=== PATIENT | female | born 1980 | race American Indian/Alaskan Native ===

== ENCOUNTER 2017-09-03 08:17 | Outpatient (CLI) | payer MEDICAID ==
[2017-09-03] MEDS ORDERED: LACTATED RINGERS 1,000 ML IV ONE (08:29)
[2017-09-03 08:41] VITALS: BP 129/75
[2017-09-03 08:47] LABS: Bacteria,Urine 1+ /HPF (Negative); Bilirubin,Urine NEG (Negative); Blood,Urine NEG (Negative); Color,Urine Yellow (Yellow); Mucus,Urine FEW /HPF; Protein,Urine <15 mg/dL mg/dL (Negative); Urobilinogen,Urine < 2.0 mg/dL (<2.0)
== END 2017-09-03 10:04 | disposition home or self-care (01) ==
LOC: TRG 08:17
PROVIDERS: ATTEND Obstetrics & Gynecology
DX: O09.523 Supervision of elderly multigravida, third trimester (principal); O47.03 False labor before 37 completed weeks of gestation, third trimester; Z3A.36 36 weeks gestation of pregnancy
CPT/HCPCS: 59025; 81001; 96360; J7120

== ENCOUNTER 2017-09-15 12:15 | Outpatient (CLI) | payer MEDICAID ==
[2017-09-15 14:00] VITALS: BP 121/65
--- NOTE | 2017-09-15 14:02 | Ultrasound Report ---
LIMITED OB ULTRASOUND: NRNST in office Gestation: L[place] Position: Cephalic MARCELA = 17 cm Heart Rate: 148 BPM Estimated age 38 weeks 1 day.
--- NOTE | 2017-09-15 14:19 | Ultrasound Report ---
BIOPHYSICAL PROFILE: NRNST in office 2 - breathing movements 2 - movements 2 - posture and tone 2 - Qualitative amniotic fluid volume 8 - TOTAL SCORE OF POSSIBLE 8 Heart Rate (bpm) 148
== END 2017-09-15 14:35 | disposition home or self-care (01) ==
LOC: TRG 12:15
PROVIDERS: ATTEND Obstetrics & Gynecology
DX: O47.1 False labor at or after 37 completed weeks of gestation (principal); Z3A.38 38 weeks gestation of pregnancy
CPT/HCPCS: 59025; 76815; 76819

== ENCOUNTER 2017-09-17 09:52 | Inpatient (IN) | payer MEDICAID ==
[2017-09-17] MEDS ORDERED: ZOFRAN IV PRN (12:13)
[2017-09-17] MEDS ORDERED: XYLOCAINE 2% INFILTRATI ONE (12:13)
[2017-09-17] MEDS ORDERED: BRETHINE SUB-Q PRN (12:13)
[2017-09-17] MEDS ORDERED: MINERAL OIL PO PRN (12:13)
[2017-09-17] MEDS ORDERED: ePHEDrine SULFATE IV PRN ×2 (12:13→14:36)
[2017-09-17] MEDS ORDERED: SUBLIMAZE IV PRN (12:13)
--- NOTE | 2017-09-17 12:21 | History and Physical Report ---
History of Present Illness Date of examination: 09/17/17 (active labor @ 38 weeks) History of present illness: EDC Confirmation: 09/28/2017 Gestational Age: 28 4/7 weeks Past History : 5 Term Births: 1 Living Children: 1 Para: 1 Aborta: 3 Elect. Ab: 1 Spont. Ab: 1 Ectopics: 1 # 1 Delivery date: 1995 Weeks Gestation: 14 Delivery type: EAB Comments: denies # 2 Delivery date: 2003 Weeks Gestation: term Delivery type: Anesthesia type: epidural Delivery location: [facility] Sex: Male weight: 6-6 Comments: GBS+ # 3 Delivery date: 2015 Weeks Gestation: 10 Delivery type: SAB Comments: had D&C # 4 Delivery date: 2016 Weeks Gestation: 7-8 Delivery type: ectopic Comments: methotrexate Risk Factors: Smoked Tobacco Use: Never smoker Smokeless Tobacco Use: Never Passive smoke exposure: no Drug use: no HIV high-risk behavior: low risk Caffeine use: <1 drinks per day Alcohol use: no 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: 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 % Family History Risk Factors: Family History of DC in females < 65 years old: yes Dietary Counseling: pn yes PAP Smear History: Date of Last PAP Smear: 05/01/2017 Results: normal Past Medical History: Hyperlipidemia Past Surgical History: ABDELRAHMAN HIDALGO - had a D&C Eye surgery 2013 Family History Summary: Sister (full) - Has Family History of Thyroid Disease - Entered On: 07/10/2017 Father (biol.) - Has Family History of Hypertension - Entered On: 07/10/2017 Father (biol.) - Has Family History of Hyperlipidemia - Entered On: 07/10/2017 Mother (biol.) - Has Family History Coronary Heart Disease female < 65 - Entered On: 07/10/2017 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 Infection History Hx of STD: none HIV Risk Eval: low risk Hepatitis B Risk Eval: low risk Personal hx. of genital herpes: yes Partner hx. of genital herpes: no Varicella/Chicken Pox Status: Previous Disease TB Risk: no Genetic History ADVANCED MATERNAL AGE Congenital Heart Defect: Mom: no Dad: no Malika Disease: Mom: no Dad: no Thalassemia Mom: no Dad: no Neural Tube Defect Mom: no Dad: no Down's Syndrome Mom: no Dad: no Kimani-Sachs Mom: no Dad: no Sickle Cell Disease/Trait Mom: no Dad: no Hemophilia Mom: no Dad: no Muscular Dystrophy Mom: no Dad: no Cystic Fibrosis Mom: no Dad: no Teresita Chorea Mom: no Dad: no Mental Retardation Mom: no Dad: no Fragile X Mom: no Dad: no Other Genetic/Chromosomal Disorder Mom: no Dad: no Child w/other defect Mom: no Dad: no Enviromental Exposures Xray Exposure: no Medication, drug, or alcohol use since LMP: no Chemical/Other Exposure: no Exposure to Cat Liter: no Hx of Parvovirus (Fifth Disease): no Occupational Exposure to Children: none Current Allergies (reviewed today): AMOXICILLIN (Critical) PCN (Critical) Laboratory Results Date/Time Collected: 07/10/2017 Routine Urinalysis Leukocytes: negative Nitrite: negative Urobilinogen: negative Protein: Negative Blood: negative Ketone: negative Bilirubin: negative Glucose: Negative Urine HCG: positive Review of Systems General Denies fever, chills, sweats, anorexia, fatigue, weakness, malaise, weight loss and sleep disorder. Denies nausea, vomiting, headache, swelling of legs, abdominal pain, vaginal discharge, vaginal bleeding and contractions. Denies vaginal discharge, incontinence, dysuria, hematuria, urinary frequency, amenorrhea, menorrhagia, abnormal vaginal bleeding, pelvic pain, genital sores, decreased libido, painful periods, painful sex, urinary urgency, hot flashes, vaginal dryness, vaginal itching and vaginal odor. CV Denies chest pains, palpitations, syncope, dyspnea on exertion, orthopnea, PND and peripheral edema. Resp Denies cough, dyspnea at rest, excessive sputum, hemoptysis, wheezing and pleurisy. GI Denies nausea, vomiting, diarrhea, constipation, change in bowel habits, abdominal pain, melena, hematochezia, jaundice, gas/bloating, indigestion/ heartburn, dysphagia and odynophagia. Endo Denies cold intolerance, heat intolerance, polydipsia, polyphagia, polyuria and unusual weight change. Breast Denies left breast lump, right breast lump, nipple discharge, bloody discharge from nipple, breast pain, abnormal mammogram and breast enlargement. MS Denies back pain, joint pain, joint swelling, muscle cramps, muscle weakness, stiffness, arthritis, sciatica, restless legs, leg pain at night and leg pain with exertion. Derm Denies rash, itching, dryness and suspicious lesions. Neuro Denies paralysis, paresthesias, headache, seizures, tremors, vertigo, transient blindness, frequent falls, frequent headaches and difficulty walking. Psych Denies depression, anxiety, irritability and mood swings. Eyes Denies blurring, diplopia, irritation, discharge, vision loss, eye pain and photophobia. ENT Denies earache, ear discharge, tinnitus, decreased hearing, nasal congestion, nosebleeds, sore throat and hoarseness. Allergy Denies urticaria, allergic rash, hay fever and recurrent infections. Heme Denies abnormal bruising, bleeding and enlarged lymph nodes. PHYSICAL EXAM HEENT: PERRLA, normal conjunctiva, external nose and nasal mucosa normal, oropharynx clear Neck/Thyroid: supple, thyroid normal Skin no significant abnormal lesions or rashes Chest: respiratory effort normal, clear to auscultation Breasts: normal without skin changes or masses CV: regular, normal S1-S2, no murmur, no rub, no gallop Abdomen: normal bowel sounds, soft, nontender, no HSM Musculoskeletal: grossly normal ROM in joints, no joint tenderness or muscle weakness Neuro: grossly normal DTRs, sensation, strength, cranial nerves Extremities: no clubbing, cyanosis, or edema [employer] Exams Vulva/Vagina: No lesions, normal BUS, normal rugae Cervix: No lesions; no cervical motion tenderness Uterus: normal size and position, midline, mobile Fundal Ht: 29 Adnexae: no masses or tenderness Rectovaginal: no masses or tenderness Flowsheet View for Follow-up Visit Estimated weeks of gestation: 28 4/7 Weight: 194 Blood pressure: 130 / 62 Urine protein: Negative Urine glucose: Negative Urine nitrite: negative Fundal height: 29 Current OB Labs Blood Type: A (04/24/2017) Rh Type: positive (04/24/2017) Rh Antibody Screen: negative (04/24/2017) Hgb: 12.1 (04/24/2017) Hct: 37.6 (04/24/2017) Platelets: 243 (04/24/2017) Rubella: immune (04/24/2017) RPR: nonreactive (04/24/2017) Hep B Surface Antigen: negative (04/24/2017) HIV: negative (04/24/2017) Pap Smear: normal (05/01/2017) Quad Screen AFP Interpretation: negative ONTD (05/04/2017) 1 Hour GTT: 100 (05/01/2017) Optional Labs Varicella Ab: positive (04/24/2017) Cystic Fibrosis: negative (04/24/2017) Past History - Obstetrical History Expected Date of Delivery: 09/28/17 Actual Gestation: 38 Week(s) 3 Day(s) : 5 Para: 1 Hx # Term Pregnancies: 1 Spontaneous Abortions: 2 (one ectopic) Induced : 1 Number of Living Children: 1 Medications and Allergies Allergies Allergy/AdvReac Type Severity Reaction Status Date / Time Penicillins Allergy Hives Verified 09/03/17 08:26 Home Medications Medication Instructions Recorded Confirmed Last Taken Type Pnv Plus Multivit Tab 1 tab PO DAILY 09/03/17 09/15/17 1 Day Ago History ~09/14/17 Terconazole 0.4% [Terazol 7] 45 gm VG QHS #1 tube 09/03/17 09/15/17 Unknown Rx Valtrex 1 tab PO DAILY 09/03/17 09/15/17 1 Day Ago History ~09/14/17 Active Meds: Active Medications Ephedrine Sulfate (Ephedrine Sulfate) 10 mg IV Q2M PRN PRN Reason: Hypotension Fentanyl (Sublimaze) 100 mcg IV Q2H PRN PRN Reason: Labor Pain Clindamycin HCl (Cleocin 900 Mg/50 Ml) 900 mg in 50 mls @ 100 mls/hr IV Q8HR LEO; Protocol Lactated Ringer's (Lactated Ringers) 1,000 mls @ 125 mls/hr IV DIRECT LEO Oxytocin/Sodium Chloride (Pitocin/Ns 20 Unit/1000ml Drip) 20 units in 1,000 mls @ 125 mls/hr IV DIRECT LEO Oxytocin/Sodium Chloride (Pitocin/Ns 30 Unit/500ml) 30 units in 500 mls @ 4 mls /hr IV TITR LEO; Protocol Lidocaine (Xylocaine 2%) 20 ml INFILTRATI ONCE ONE Stop: 09/17/17 12:14 Mineral Oil (Mineral Oil) 30 ml PO QHS PRN PRN Reason: Constipation Ondansetron HCl (Zofran) 4 mg IV Q8H PRN PRN Reason: Nausea And Vomiting Terbutaline Sulfate (Brethine) 0.25 mg SUB-Q ONCE PRN PRN Reason: Hyperstimulation/Hypertonicity - Vital Signs Vital signs: Vital Signs Temp Resp 98.9 F 20 09/17/17 10:05 09/17/17 10:05 Temp Pulse Resp BP Pulse Ox 98.9 F 97 H 20 137/81 99 09/17/17 10:05 09/17/17 12:16 09/17/17 10:05 09/17/17 12:06 09/17/17 12:16 - Physical Exam Breasts: Positive: deferred Cardiovascular: Regular rate Lungs: Positive: Normal air movement Abdomen: Positive: normal appearance, soft, normal bowel sounds Genitourinary (Female): Positive: normal external genitalia, normal perenium Vagina: Positive: normal moisture Uterus: Positive: normal size Anus/Rectum: Positive: normal perianal skin Extremities: Positive: edema Deep Tendon Reflex Grade: Normal +2 - Obstetrical FHR: category 1 Uterine Contraction Monitor Mode: External Cervical Dilatation: 6 (BBOW) Cervical Effacement Percentage: 100 (vertex acynclitic to the right) station: -3 Uterine Contraction Pattern: Regular Uterine Tone Measurement Phase: Resting Uterine Contraction Intensity: Moderate Results All other labs normal. GBS + Current OB Labs Blood Type: A (04/24/2017) Rh Type: positive (04/24/2017) Rh Antibody Screen: negative (04/24/2017) Hgb: 12.1 (04/24/2017) Hct: 37.6 (04/24/2017) Platelets: 243 (04/24/2017) Rubella: immune (04/24/2017) RPR: nonreactive (04/24/2017) Hep B Surface Antigen: negative (04/24/2017) HIV: negative (04/24/2017) Pap Smear: normal (05/01/2017) Quad Screen AFP Interpretation: negative ONTD (05/04/2017) 1 Hour GTT: 100 (05/01/2017) Optional Labs Varicella Ab: positive (04/24/2017) Cystic Fibrosis: negative (04/24/2017) Assessment and Plan 37yo @ 38 weeks in active labor GBS+ Was seeing APA due to AMA and polyhydramnios. Orders in EMR. Anticipate delivery - Patient Problems (1) Group B Streptococcus carrier state affecting Onset Date: ~09/17/17 Current Visit: Yes Status: Acute Plan to address problem: GBS + by history and urine. Pt is allergic to PCN. Will treat per protocol with Clindamycin. (2) Herpes genitalis Onset Date: ~09/17/17 Current Visit: Yes Status: Acute Plan to address problem: Pt was started on QD Valtrex @ 35 weeks for prophylaxis (3) Active labor Onset Date: ~09/17/17 Current Visit: Yes Status: Acute Plan to address problem: Cervical chg 3 cm since arrival. Effacement 100% Orders in EMR Anticipate delivery Dr.Meziere tejeda.
[2017-09-17] MEDS ORDERED: LACTATED RINGERS 1,000 ML IV SCH ×2 (13:00→16:00)
[2017-09-17] MEDS ORDERED: PITOCin/NS 30 UNIT/500ML 30 UNITS/500 ML BAG IV SCH (13:00)
[2017-09-17] MEDS ORDERED: PITOCin/NS 20 UNIT/1000ML DRIP 20 UNITS/1,000 ML BAG IV SCH ×2 (13:00→16:00)
[2017-09-17 13:25] LABS: Hematocrit 44.4 % (30.3-42.9); Hemoglobin 14.3 gm/dl (10.1-14.3); Mean Corpuscular HGB Conc 32 % (30-34); Mean Corpuscular Hemoglobin 28 pg (28-32); Mean Corpuscular Volume 88 fl (79-97); Red Blood Count 5.05 M/mm3 (3.65-5.03); Red Cell Distribution Width 16.3 % (13.2-15.2)
[2017-09-17 13:28] LABS: Platelet Count 265 K/mm3 (140-440)
--- NOTE | 2017-09-17 13:32 | Event Note ---
Date: 09/17/17 (SROM clear fluid copious amt) SROM clear fluid Copious amt @ 1240 SVE 7,100,-1 Internal monitors placed SVE 8,100,0 @ 1320 Anticipate delivery
[2017-09-17] MEDS ORDERED: CLEOCIN 900 MG/50 mL 900 MG/50 ML BAG IV SCH (14:00)
[2017-09-17] MEDS ORDERED: NARCAN 2 MG/2 ML IV PRN (14:36)
--- NOTE | 2017-09-17 14:36 | Anesthesia Consultation ---
Anesthesia Consult and Med Hx Date of service: 09/17/17 - Airway Anesthetic Teeth Evaluation: Good ROM Head & Neck: Adequate Mental/Hyoid Distance: Adequate Mallampati Class: Class II Intubation Access Assessment: Probably Good - Pre-Operative Health Status ASA Pre-Surgery Classification: ASA2 Proposed Anesthetic Plan: Epidural, Spinal - Pulmonary Hx Asthma: No COPD: No Hx Pneumonia: No - Cardiovascular System Hx Hypertension: No - Central Nervous System Hx Seizures: No Hx Psychiatric Problems: No - Endocrine Hx Renal Disease: No Hx End Stage Renal Disease: No Hx Hypothyroidism: No Hx Hyperthyroidism: No - Hematic Hx Anemia: No Hx Sickle Cell Disease: No - Other Systems Hx Alcohol Use: No
[2017-09-17] MEDS ORDERED: GARAMYCIN/NS 120MG/100ML 120 MG/100 ML BAG IV SCH (15:00)
[2017-09-17] MEDS ORDERED: fentaNYL-BUPIV 2 MCG/ML-0.125% 200 MCG/100 ML BAG EPIDURAL SCH (15:00)
[2017-09-17] MEDS ORDERED: PEPCID IV ONE (15:18)
[2017-09-17] MEDS ORDERED: BICITRA PO ONE (15:18)
[2017-09-17] MEDS ORDERED: REGLAN IV ONE (15:18)
--- NOTE | 2017-09-17 15:27 | Event Note ---
Date: 09/17/17 (prolong decel after epidural) Prolong decel after epidural Pitocin off Pt repositioned SVE Rim 100, 0 Pt allowed to push Appeared to have movement of head Placed in Stirups Appears head has migrated to a ballotable position Cervix is 8cm 80% effaced. here. Will allow to labor down FHR recovered.
[2017-09-17] MEDS ORDERED: GARAMYCIN 120 MG in NACL 0.9% 100 ML IV SCH (15:30)
[2017-09-17] MEDS ORDERED: NS IV ONE (15:31)
[2017-09-17] MEDS ORDERED: GARAMYCIN IV ONE (15:31)
[2017-09-17] MEDS ORDERED: WATER FOR IRRIG STERILE IR ONE (16:05)
[2017-09-17] MEDS ORDERED: NACL 0.9% IR ONE (16:05)
[2017-09-17] MEDS ORDERED: NACL 0.9% 1000 ML 1,000 ML ONE (16:15)
[2017-09-17] MEDS ORDERED: XYLOCAINE MPF 2% ONE ×2 (16:19)
[2017-09-17] MEDS ORDERED: MORPHINE ONE (16:35)
[2017-09-17] MEDS ORDERED: DILAUDID ONE (16:37)
[2017-09-17] MEDS ORDERED: MYLICON PO PRN (17:20)
[2017-09-17] MEDS ORDERED: LANSINOH TP PRN (17:20)
[2017-09-17] MEDS ORDERED: NARCAN 0.4 MG/1 ML IV PRN (17:20)
[2017-09-17] MEDS ORDERED: TUCKS PAD TP PRN (17:20)
--- NOTE | 2017-09-17 17:40 | Operative Report ---
Operative Report Operative Report: Date of procedure: 09/17/2017 Pre-operative diagnosis:38 weeks gestation Nonreassuring tracing Remote from delivery Post-operative diagnosis: Same plus uterine band and and possible abruption Procedure name(s): Primary low transverse section via Pfannenstiel skin incision Surgeon: Dr. Billy Transitions Rn Care Coordinator: TERRY Anesthesia: Epidural EBL: 600 mL Urine output: 100 mL of clear urine out at the end of the procedure Fluids: 600 mL Findings: Liveborn female weight 8 lbs. 3 oz. Apgars of 6 and 8 at one and 5 minutes Grossly normal fallopian tubes and ovaries bilaterally Approximately 3 cm posterior fundal uterine fibroid Constricted lower uterine segment forming a tight lower uterine segment band Bowel was noted to be coming across the anterior surface of the uterus upon entry into the peritoneum Indications: Patient presented in active labor. Patient was noted to have prolonged deceleration in which the baby did recover and heart tones did return to baseline. However she was noted to have consistent tachycardia with heart tones in the 160s to 180s. Decision was made at this time to proceed with primary section. Consents were signed and placed on the chart all questions were addressed and answered baby did not respond to resuscitative measures. Procedure: Patient was taking to the operating room. Patient was then prepped and draped in sterile fashion after anesthesia was found to be adequate. A low transverse skin incision was made with the scalpel and carried down to the underlying layer of fascia with the Bovie. The fascia was then incised in the midline and this incision was extended bilaterally with the Bovie. The superior aspect of the fascia was grasped with Jake clamps tented upward and dissected off of the anterior rectus muscles with the scalpel. In similar fashion the inferior aspect of the fascia was grasped with Jake clamps tented upward and dissected off of the anterior rectus muscles. The rectus muscles were then bluntly divided in the midline. The peritoneum was identified and entered into sharply. The Yeyo retractor was placed. The bowel was packed away with tied with laps. The bladder blade was placed. A lower transverse uterine incision was made with the scalpel and extended bilaterally with the bandage scissors.The 's head was then delivered atraumatically. The anterior shoulder and rest of infant delivered without difficulty. The umbilical cord was clamped x2. The cord was cut. The was then placed in sterile bassinet. The placenta was manually extracted in its entirety. It was noted that there appeared to be dark old blood in the uterus behind where the placenta had occupied. This was suggestive of possible abruption. The uterus was exteriorized and cleared of all clots and debris. The uterine incision was closed using 0 Vicryl in a running locking fashion. Figure of 8 sutures using 0 Vicryl were done along the incision line to secure excellent hemostasis. Tisseel was placed over the uterine incision with excellent hemostasis noted. The posterior cul-de-sac was copiously irrigated. The uterus was returned to the abdomen. The gutters were also irrigated. All laps and instruments were removed from the abdomen. Lap count was done at this time was noted to be correct. The anterior rectus muscles were reapproximated using 3-0 Vicryl. The anterior rectus fascia was reapproximated using 0 Vicryl in a running fashion. The subcuticular fat was reapproximated using 2-0 Vicryl in a running fashion. The skin was reapproximated with 4-0 Monocryl in a subcuticular stitch. The patient tolerated the procedure well. Sponge lap and needle counts were all correct x3. Patient was taken to the recovery room awake and in stable condition.
[2017-09-17] MEDS: TORADOL IV PRN (17:58)
[2017-09-17] MEDS ORDERED: D5LR 1,000 ML IV SCH (18:00)
[2017-09-17] MEDS ORDERED: SODIUM CHLORIDE FLUSH SYRINGE 10 ML IV NR (18:00)
[2017-09-18] MEDS: TORADOL IV PRN ×2 (00:24→06:19)
[2017-09-18] MEDS: CLEOCIN 600 MG/50 mL 600 MG/50 ML BAG IV SCH ×2 (00:41→11:59)
[2017-09-18] MEDS ORDERED: BOOSTRIX IM ONE (06:00)
[2017-09-18 07:21] LABS: Hematocrit 33.7 % (30.3-42.9); Hemoglobin 10.9 gm/dl (10.1-14.3)
--- NOTE | 2017-09-18 08:19 | Progress Note ---
Assessment and Plan - Patient Problems (1) delivery delivered Onset Date: ~09/17/17 Current Visit: Yes Status: Acute Plan to address problem: Pt w/o complaint with excetion of hot flushes periodically, Pt has persistent tachycardia RRR noted otherwise VSS FF below umb Lochia small Incision D&I H&H drop r/t blood loss from surgery Pt is asymptomatic Doing well s/p c/s P: continue pathway Observe VS throughout the day. Advance diet and activity as tolerated. Subjective - Subjective Date of service: 09/18/17 (pt c/o hot flushes) Principal diagnosis: Day # 1 s/p section Interval history: EDC Confirmation: 09/28/2017 Gestational Age: 28 4/7 weeks Past History : 5 Term Births: 1 Living Children: 1 Para: 1 Aborta: 3 Elect. Ab: 1 Spont. Ab: 1 Ectopics: 1 # 1 Delivery date: 1995 Weeks Gestation: 14 Delivery type: EAB Comments: denies # 2 Delivery date: 2002 Weeks Gestation: term Delivery type: Anesthesia type: epidural Delivery location: [facility] Infant Sex: Male weight: 6-6 Comments: GBS+ # 3 Delivery date: 2014 Weeks Gestation: 10 Delivery type: SAB Comments: had D&C # 4 Delivery date: 2016 Weeks Gestation: 7-8 Delivery type: ectopic Comments: methotrexate Risk Factors: Smoked Tobacco Use: Never smoker Smokeless Tobacco Use: Never Passive smoke exposure: no Drug use: no HIV high-risk behavior: low risk Caffeine use: <1 drinks per day Alcohol use: no 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 % Family History Risk Factors: Family History of HI in females < 65 years old: yes Dietary Counseling: pn yes PAP Smear History: Date of Last PAP Smear: 05/01/2017 Results: normal Past Medical History: Hyperlipidemia Past Surgical History: EAB MAB - had a D&C Eye surgery 2013 Family History Summary: Sister (full) - Has Family History of Thyroid Disease - Entered On: 07/10/2017 Father (biol.) - Has Family History of Hypertension - Entered On: 07/10/2017 Father (biol.) - Has Family History of Hyperlipidemia - Entered On: 07/10/2017 Mother (biol.) - Has Family History Coronary Heart Disease female < 65 - Entered On: 07/10/2017 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 Infection History Hx of STD: none HIV Risk Eval: low risk Hepatitis B Risk Eval: low risk Personal hx. of genital herpes: yes Partner hx. of genital herpes: no Varicella/Chicken Pox Status: Previous Disease TB Risk: no Genetic History ADVANCED MATERNAL AGE Congenital Heart Defect: Mom: no Dad: no Malika Disease: Mom: no Dad: no Thalassemia Mom: no Dad: no Neural Tube Defect Mom: no Dad: no Down's Syndrome Mom: no Dad: no Kimani-Sachs Mom: no Dad: no Sickle Cell Disease/Trait Mom: no Dad: no Hemophilia Mom: no Dad: no Muscular Dystrophy Mom: no Dad: no Cystic Fibrosis Mom: no Dad: no [place] Chorea Mom: no Dad: no Mental Retardation Mom: no Dad: no Fragile X Mom: no Dad: no Other Genetic/Chromosomal Disorder Mom: no Dad: no Child w/other defect Mom: no Dad: no Enviromental Exposures Xray Exposure: no Medication, drug, or alcohol use since LMP: no Chemical/Other Exposure: no Exposure to Cat Liter: no Hx of Parvovirus (Fifth Disease): no Occupational Exposure to Children: none Current Allergies (reviewed today): AMOXICILLIN (Critical) PCN (Critical) Laboratory Results Date/Time Collected: 07/10/2017 Routine Urinalysis Leukocytes: negative Nitrite: negative Urobilinogen: negative Protein: Negative Blood: negative Ketone: negative Bilirubin: negative Glucose: Negative Urine HCG: positive Review of Systems General Denies fever, chills, sweats, anorexia, fatigue, weakness, malaise, weight loss and sleep disorder. Denies nausea, vomiting, headache, swelling of legs, abdominal pain, vaginal discharge, vaginal bleeding and contractions. Denies vaginal discharge, incontinence, dysuria, hematuria, urinary frequency, amenorrhea, menorrhagia, abnormal vaginal bleeding, pelvic pain, genital sores, decreased libido, painful periods, painful sex, urinary urgency, hot flashes, vaginal dryness, vaginal itching and vaginal odor. CV Denies chest pains, palpitations, syncope, dyspnea on exertion, orthopnea, PND and peripheral edema. Resp Denies cough, dyspnea at rest, excessive sputum, hemoptysis, wheezing and pleurisy. GI Denies nausea, vomiting, diarrhea, constipation, change in bowel habits, abdominal pain, melena, hematochezia, jaundice, gas/bloating, indigestion/ heartburn, dysphagia and odynophagia. Endo Denies cold intolerance, heat intolerance, polydipsia, polyphagia, polyuria and unusual weight change. Breast Denies left breast lump, right breast lump, nipple discharge, bloody discharge from nipple, breast pain, abnormal mammogram and breast enlargement. MS Denies back pain, joint pain, joint swelling, muscle cramps, muscle weakness, stiffness, arthritis, sciatica, restless legs, leg pain at night and leg pain with exertion. Derm Denies rash, itching, dryness and suspicious lesions. Neuro Denies paralysis, paresthesias, headache, seizures, tremors, vertigo, transient blindness, frequent falls, frequent headaches and difficulty walking. Psych Denies depression, anxiety, irritability and mood swings. Eyes Denies blurring, diplopia, irritation, discharge, vision loss, eye pain and photophobia. ENT Denies earache, ear discharge, tinnitus, decreased hearing, nasal congestion, nosebleeds, sore throat and hoarseness. Allergy Denies urticaria, allergic rash, hay fever and recurrent infections. Heme Denies abnormal bruising, bleeding and enlarged lymph nodes. PHYSICAL EXAM HEENT: PERRLA, normal conjunctiva, external nose and nasal mucosa normal, oropharynx clear Neck/Thyroid: supple, thyroid normal Skin no significant abnormal lesions or rashes Chest: respiratory effort normal, clear to auscultation Breasts: normal without skin changes or masses CV: regular, normal S1-S2, no murmur, no rub, no gallop Abdomen: normal bowel sounds, soft, nontender, no HSM Musculoskeletal: grossly normal ROM in joints, no joint tenderness or muscle weakness Neuro: grossly normal DTRs, sensation, strength, cranial nerves Extremities: no clubbing, cyanosis, or edema [employer] Exams Vulva/Vagina: No lesions, normal BUS, normal rugae Cervix: No lesions; no cervical motion tenderness Uterus: normal size and position, midline, mobile Fundal Ht: 29 Adnexae: no masses or tenderness Rectovaginal: no masses or tenderness Flowsheet View for Follow-up Visit Estimated weeks of gestation: 28 4/7 Weight: 194 Blood pressure: 130 / 62 Urine protein: Negative Urine glucose: Negative Urine nitrite: negative Fundal height: 29 Current OB Labs Blood Type: A (04/24/2017) Rh Type: positive (04/24/2017) Rh Antibody Screen: negative (04/24/2017) Hgb: 12.1 (04/24/2017) Hct: 37.6 (04/24/2017) Platelets: 243 (04/24/2017) Rubella: immune (04/24/2017) RPR: nonreactive (04/24/2017) Hep B Surface Antigen: negative (04/24/2017) HIV: negative (04/24/2017) Pap Smear: normal (05/01/2017) Quad Screen AFP Interpretation: negative ONTD (05/04/2017) 1 Hour GTT: 100 (05/01/2017) Optional Labs Varicella Ab: positive (04/24/2017) Cystic Fibrosis: negative (04/24/2017) Patient reports: appetite normal (advance diet this AM), voiding normally, pain well controlled, ambulating normally [place]: doing well Objective - Vital Signs Latest vital signs: Vital Signs Temp Pulse Resp BP BP Pulse Ox 09/18/17 06:43 18 09/18/17 06:19 18 09/18/17 04:15 98.2 F 108 H 18 100/53 09/18/17 00:54 18 09/18/17 00:24 20 09/18/17 00:00 98.9 F 118 H 18 110/66 09/17/17 20:10 98.0 F 102 H 20 110/58 09/17/17 18:15 99.0 F 105 H 14 127/74 98 09/17/17 18:00 99.1 F 102 H 24 121/64 100 09/17/17 17:58 106 H 32 H 131/71 100 09/17/17 17:52 105 H 13 118/74 100 09/17/17 17:46 106 H 13 116/70 98 09/17/17 17:40 102 H 15 121/62 100 09/17/17 17:35 103 H 21 123/72 100 05/23/18 17:30 100 H 21 121/73 100 05/23/18 17:25 101 H 15 125/70 100 05/23/18 17:20 102 H 17 117/69 100 05//18 17:15 102 H 21 117/67 05//18 17:10 102 H 33 H 115/65 100 05//18 17:05 105 H 29 H 116/63 99 05/23/18 17:00 99 05/18 15:10 121 H 100 05/23/18 15:05 132 H 100 05//18 15:04 144 H 83 L 0518 15:00 110 H 100 05/23/18 14:56 104 H 132/69 05/23/18 14:55 87 100 05//18 14:54 95 H 135/72 05//18 14:50 102 H 99 05//18 14:45 104 H 100 05//18 14:42 108 H 128/68 05/23/18 14:41 109 H 134/71 05/23/18 14:40 99 H 100 05//18 14:39 77 L 05/18 14:36 103 H 130/66 05/23/18 14:33 29 L 84 05//18 14:32 107 H 124/63 05//18 14:30 103 H 100 05//18 14:25 114 H 100 05//18 14:24 110 H 144/75 05//18 14:20 101 H 100 05/23/18 14:15 108 H 100 05/23/18 13:55 24 05//18 13:25 20 05/23/18 12:31 100 H 98 05/23/18 12:26 98 H 99 05/23/18 12:21 101 H 97 05/23/18 12:16 97 H 99 05/23/18 12:11 105 H 98 05/23/18 12:06 104 H 137/81 98 05/23/18 10:44 103 H 97 05/23/18 10:39 103 H 98 05/23/18 10:34 103 H 98 05/23/18 10:29 101 H 99 05/23/18 10:24 104 H 98 05/23/18 10:20 104 H 137/86 05/23/18 10:19 104 H 99 05/23/18 10:05 98.9 F 20 Intake and Output 09/17/17 09/18/17 09/18/17 22:59 06:59 14:59 Intake Total 1100 360 Output Total 200 400 Balance 900 -40 Intake: IV 1100 Oral 360 Output: Urine 200 400 Indwelling Catheter 400 Other: Total, Intake Amount 120 Total, Output Amount 200 - Exam Breasts: Present: normal, Cardiovascular: Present: Regular rate Lungs: Present: Normal air movement Abdomen: Present: normal appearance, soft, normal bowel sounds Uterus: Present: normal, firm, fundal height below umbilicus Extremities: Present: normal Deep Tendon Reflex Grade: Normal +2 Incision: Present: normal, dry, intact - Labs Labs: Abnormal lab results 09/17/17 09/17/17 09/17/17 Range/Units 12:55 16:47 16:53 WBC 11.1 H (4.5-11.0) K/mm3 RBC 5.05 H (3.65-5.03) M/mm3 Hct 44.4 H (30.3-42.9) % RDW 16.3 H (13.2-15.2) % POC ABG pH 7.091 L 7.105 L (7.35-7.45) POC ABG pCO2 62.8 H 58.1 H (35-45) POC ABG pO2 7 L 10 L (80-105)
[2017-09-18] MEDS: NORCO 5/325 PO PRN ×2 (16:04→20:02)
[2017-09-18] MEDS: MOTRIN PO PRN ×2 (20:45→23:10)
[2017-09-19] MEDS: NORCO 5/325 PO PRN ×4 (03:36→20:45)
[2017-09-19] MEDS: MOTRIN PO PRN ×3 (07:45→20:45)
--- NOTE | 2017-09-19 08:49 | Progress Note ---
Assessment and Plan A: postop day 2 s/p repeat c/s. pt has not yet passed gas - abd distended w/ hypoactive BS. VSSAF, H&H stable, no s/s anemia. P: Shower, increase activity as tolerated, MOM/prune juice/suppository to help with gas. Continue postop management and anticipate d/c home tomorrow. - Patient Problems (1) delivery delivered Onset Date: ~09/17/17 Current Visit: Yes Status: Acute Subjective - Subjective Date of service: 09/19/17 Principal diagnosis: Day # 2 s/p section Patient reports: appetite normal, voiding normally, pain well controlled, ambulating normally, no dizzy ambulation, no flatus, no bowel movement, no nauseated [place]: doing well, bottle feeding Objective - Vital Signs Latest vital signs: Vital Signs Temp Pulse Resp BP BP Pulse Ox 09/19/17 03:36 18 09/19/17 00:32 98.4 F 101 H 20 110/64 97 09/19/17 00:08 16 09/18/17 23:10 18 09/18/17 21:02 18 09/18/17 20:02 18 09/18/17 17:04 99.2 F 09/18/17 15:37 100.0 F H 112 H 36 H 128/79 98 09/18/17 11:43 98.5 F 107 H 20 114/63 99 Intake and Output 09/18/17 09/19/17 09/19/17 23:59 07:59 15:59 Intake Total 480 240 Balance 480 240 Intake: Oral 480 240 Other: Total, Intake Amount 240 240 # Voids Void 1 1 - Exam Breasts: Present: normal Cardiovascular: Present: Regular rate Lungs: Present: Clear to auscultation, Normal air movement Abdomen: Present: normal appearance, soft, abnormal bowel sounds (hypo) Vulva: both: normal Uterus: Present: normal, firm, fundal height at umbilicus Extremities: Present: normal Deep Tendon Reflex Grade: Normal +2 Incision: Present: normal, dry, dressed (rn to remove dressing during shower this AM)
[2017-09-19] MEDS ORDERED: MILK OF MAGNESIA PO PRN (09:00)
[2017-09-19] MEDS ORDERED: DULCOLAX PR PRN (17:07)
[2017-09-20] MEDS: NORCO 5/325 PO PRN ×4 (00:40→17:12)
[2017-09-20] MEDS: MOTRIN PO PRN ×3 (06:27→17:11)
--- NOTE | 2017-09-20 11:13 | Discharge Summary ---
Providers - Providers Date of Admission: 09/17/17 16:28 Date of discharge: 09/20/17 (pt desires d/c) Attending physician: SYLWIA ROTHMAN Primary care physician: SYLWIA ROTHMAN Hospitalization Reason for admission: active labor Delivery: Procedure: primary low transverse (nonreassuring heart tones Remote from delivery) Episiotomy: none Laceration: none Incision: normal, dry, intact Other procedures: none complications: none Discharge diagnosis: IUP at term delivered Hasty baby: female Hospital course: uncomplicated section Pt w/o complaints Desires d/c home today VSS FF below umb Lochia scant Incision D&I Pt is asymptomatic anemia, H&H . Doing well s/p section. P: d/ c today with instructions RTO 1 week for postop check RX provided at d/c Appt made for post op 09-25-17 @ [address] [place] office. Condition at discharge: Good Disposition: DC-01 TO HOME OR SELFCARE - Discharge Diagnoses (1) delivery delivered Status: Acute Comment: RTO 1 week postop care Plan - Discharge Medications Prescriptions: Ibuprofen 800 mg PO Q6HR #30 tablet oxyCODONE /ACETAMINOPHEN [Percocet 5/325] 1 tab PO Q4HR #30 tab - Provider Discharge Summary Activity: routine, no sex for 6 weeks, no heavy lifting 4 weeks, no strenuous exercise Diet: routine Instructions: routine Additional instructions: [] Smoking cessation referral if applicable(refer to patient education folder for contact #) [] Refer to [facility] Booklet Call your doctor immediately for: * Fever > 100.5 * Heavy vaginal bleeding ( >1 pad per hour) * Severe persistent headache * Shortness of breath * Reddened, hot, painful area to leg or breast * Drainage or odor from incision. * Keep incision clean and dry at all times and follow doctor's instructions regarding bathing/showering - Follow up plan Follow up: SYLWIA ROTHMAN MD [Primary Care Provider] - 09/25/17 10:45 am (Congratulations! Please call [phone] to schedule your postoperative visit is scheduled for 09-25-17 @ 10:45 in the [place] office. Take medications as prescribed. Call with any concerns.)
[2017-09-20 18:48] VITALS: BP 106/60
== END 2017-09-20 18:57 | disposition home or self-care (01) | DRG 765 ==
LOC: TRG 09:52 → LD 12:32 → TRG 16:27 → LD 16:28 → OB 18:35
PROVIDERS: ADMIT Obstetrics & Gynecology; ATTEND Obstetrics & Gynecology
PROC: 10D00Z1 Extraction of Products of Conception, Low, Open Approach (ICD-10-PCS; principal; 2017-09-17)
PROC: 4A033R1 Measurement of Arterial Saturation, Peripheral, Percutaneous Approach (ICD-10-PCS; 2017-09-17)
DX: O76 Abnormality in fetal heart rate and rhythm complicating labor and delivery (principal); O98.32 Other infections with a predominantly sexual mode of transmission complicating childbirth; Z3A.38 38 weeks gestation of pregnancy; Z37.0 Single live birth; Z88.0 Allergy status to penicillin; O99.824 Streptococcus B carrier state complicating childbirth; A60.00 Herpesviral infection of urogenital system, unspecified; O99.02 Anemia complicating childbirth; D64.9 Anemia, unspecified
CPT/HCPCS: 36415; 82803; 85014; 85018; 85027; 86592; 86850; 86900; 86901; 88307; 99211; C9250; G0463; J1170; J1580; J1885; J2270; J2590; J2765; J3010; J3105; J7030; J7120; J7121

== ENCOUNTER 2017-10-10 08:52 | Outpatient (CLI) | payer MEDICAID, OTHER ==
[2017-10-10] MEDS ORDERED: XYLOCAINE TOPICAL 4% TP ONE (09:25)
== END 2017-10-10 08:53 | disposition home or self-care (01) ==
LOC: WOUND 08:52
PROVIDERS: ATTEND Surgery
DX: T81.89XA Other complications of procedures, not elsewhere classified, initial encounter (principal); E78.00 Pure hypercholesterolemia, unspecified; S31.109A Unspecified open wound of abdominal wall, unspecified quadrant without penetration into peritoneal cavity, initial encounter; X58.XXXA Exposure to other specified factors, initial encounter; Y93.89 Activity, other specified; Y99.8 Other external cause status; Y83.8 Other surgical procedures as the cause of abnormal reaction of the patient, or of later complication, without mention of misadventure at the time of the procedure; Y92.89 Other specified places as the place of occurrence of the external cause
CPT/HCPCS: 97605; G0463; 99213

== ENCOUNTER 2017-10-24 10:44 | Outpatient (CLI) | payer MEDICAID ==
[2017-10-24] MEDS ORDERED: XYLOCAINE TOPICAL 4% TP ONE ×2 (10:49→11:13)
== END 2017-10-24 10:45 | disposition home or self-care (01) ==
LOC: WOUND 10:44
PROVIDERS: ATTEND Surgery
DX: T81.89XD Other complications of procedures, not elsewhere classified, subsequent encounter (principal); E78.00 Pure hypercholesterolemia, unspecified; Y83.8 Other surgical procedures as the cause of abnormal reaction of the patient, or of later complication, without mention of misadventure at the time of the procedure
CPT/HCPCS: 99214; G0463

== ENCOUNTER 2017-10-31 10:46 | Outpatient (CLI) | payer OTHER ==
[2017-10-31] MEDS ORDERED: XYLOCAINE TOPICAL 4% TP ONE ×2 (11:12→15:14)
[2017-10-31] MEDS ORDERED: SILVER NITRATE TP ONE ×2 (11:32→15:14)
== END 2017-10-31 10:47 | disposition home or self-care (01) ==
LOC: WOUND 10:46
PROVIDERS: ATTEND Surgery
DX: T81.89XD Other complications of procedures, not elsewhere classified, subsequent encounter (principal); E78.00 Pure hypercholesterolemia, unspecified; Y83.8 Other surgical procedures as the cause of abnormal reaction of the patient, or of later complication, without mention of misadventure at the time of the procedure
CPT/HCPCS: 17250

== ENCOUNTER 2017-11-07 09:07 | Outpatient (CLI) | payer OTHER, MEDICAID ==
[~2017-11-07 09:07] MED LIST: XYLOCAINE TOPICAL 4% TP ONE
[2017-11-07] MEDS ORDERED: SILVER NITRATE TP ONE (09:25)
[2017-11-07] MEDS ORDERED: XYLOCAINE TOPICAL 4% TP ONE (09:25)
== END 2017-11-07 09:08 | disposition home or self-care (01) ==
LOC: WOUND 09:07
PROVIDERS: ATTEND Surgery
DX: T81.89XD Other complications of procedures, not elsewhere classified, subsequent encounter (principal); E78.00 Pure hypercholesterolemia, unspecified; Y83.8 Other surgical procedures as the cause of abnormal reaction of the patient, or of later complication, without mention of misadventure at the time of the procedure
CPT/HCPCS: 17250

== ENCOUNTER 2017-11-14 09:11 | Outpatient (CLI) | payer OTHER, MEDICAID ==
[2017-11-14] MEDS ORDERED: XYLOCAINE TOPICAL 4% TP ONE ×2 (09:33→10:35)
== END 2017-11-14 09:12 | disposition home or self-care (01) ==
LOC: WOUND 09:11
PROVIDERS: ATTEND Surgery
DX: T81.89XD Other complications of procedures, not elsewhere classified, subsequent encounter (principal); E78.00 Pure hypercholesterolemia, unspecified; Y83.8 Other surgical procedures as the cause of abnormal reaction of the patient, or of later complication, without mention of misadventure at the time of the procedure
CPT/HCPCS: 99214; G0463

== ENCOUNTER 2017-11-28 09:32 | Outpatient (CLI) | payer OTHER, MEDICAID ==
[2017-11-28] MEDS ORDERED: XYLOCAINE TOPICAL 2% 5ML ONE (09:43)
[2017-11-28] MEDS ORDERED: SILVER NITRATE TP ONE ×2 (09:45→15:02)
[2017-11-28] MEDS ORDERED: XYLOCAINE TOPICAL 2% 5ML TP ONE (09:50)
== END 2017-11-28 09:33 | disposition home or self-care (01) ==
LOC: WOUND 09:32
PROVIDERS: ATTEND Surgery
DX: T81.89XD Other complications of procedures, not elsewhere classified, subsequent encounter (principal); E78.00 Pure hypercholesterolemia, unspecified; Y83.8 Other surgical procedures as the cause of abnormal reaction of the patient, or of later complication, without mention of misadventure at the time of the procedure
CPT/HCPCS: 17250

== ENCOUNTER → 2017-12-10 | Outpatient (CLI) | payer OTHER, MEDICAID | END | disposition home or self-care (01) | LOC: WOUND 09:42 | PROVIDERS: ATTEND Surgery | DX: T81.89XD Other complications of procedures, not elsewhere classified, subsequent encounter (principal); E78.00 Pure hypercholesterolemia, unspecified; Y83.8 Other surgical procedures as the cause of abnormal reaction of the patient, or of later complication, without mention of misadventure at the time of the procedure | CPT/HCPCS: 99213; G0463 ==